=== PATIENT | female | born 1970 | race Caucasian/White ===

== ENCOUNTER 2021-05-01 10:22 | Emergency (ER) | payer OTHER ==
[~2021-05-01] VITALS: Ht 162.6 cm; Wt 88.9 kg
[2021-05-01] MEDS ORDERED: TAPAZOLE10 MG PO (10:41)
[2021-05-01] MEDS ORDERED: MELOXICAM15 MG PO (10:41)
[2021-05-01] MEDS ORDERED: ZYRTEC10 M4 PO (10:42)
[2021-05-01 11:06] VITALS: BP 130/82
== END 2021-05-01 11:06 | disposition home or self-care (01) ==
LOC: M.ERS 10:22
DX: U07.1 COVID-19 (principal); F17.210 Nicotine dependence, cigarettes, uncomplicated; Z79.899 Other long term (current) drug therapy; Z88.6 Allergy status to analgesic agent